=== PATIENT | male | born 1955 | race Caucasian/White ===

== ENCOUNTER → 2020-02-05 | Outpatient (CLI) | payer OTHER ==
--- NOTE | 2020-02-05 15:02 | RAD ---
MR#: [id number] Date of Study: 02/05/2020 Ordering Physician: LEIGHA LAU, Referring Physician: LEIGHA LAU, Tech: Anthony Valenzuela RDMS, RAÚL APPROVED REPORT Patient Location: OUT-PATIENT Exam Type: Ankle to Brachial Index Indications PAD Risk Factors Hypertension Hyperlipidemia Smoking Post Exercise Pressures/Indices Right Left 130mmHgBrachial 120mmHg 116mmHgAnkle (DP) 155mmHg 113mmHgAnkle (PT) 146mmHg 0.89ABI 1.2 Findings 1. Mildly decreased TIMMY on the right side at 0.89, normal left-sided TIMMY. Critical Notification Critical Value: No Signed by : Leigha Lau, Electronically Approved : 02/05/2020 15:02:31
--- NOTE | 2020-02-05 17:02 | RAD ---
MR#: [id number] Date of Study: 02/05/2020 Ordering Physician: LEIGHA LAU, Referring Physician: LEIGHA LAU, Tech: Anthony Valenzuela RDMS, RAÚL APPROVED REPORT Patient Location: OUT-PATIENT Indications hyperlipidemia, body mass index 2.0-2.79, coronary artery disease Risk Factors PAD Hypertension Smoking Duplex Results A/PTransverseLongitudinal Proximal Aorta 3.2cm Mid Aorta 1.5cm Distal Aorta 1.4cm Rt. Common Iliac Artery1.2cm Lt. Common Iliac Artery .8cm Doppler VelocityWaveform Proximal Aorta 51.3 cm/sec Aorta Mid. 34.6 cm/sec Distal Aorta 37.4 cm/sec Rt. Common Iliac Tnqyho95.9 cm/sec Lt. Common Iliac Artery 73.8 cm/sec Findings Technically limited images. Grayscale images of the proximal aorta demonstrate mild aneurysmal dilat ation at 3.2 cm. There is diffuse calcification. No significant velocity acceleration or decelerati on is noted. Critical Notification Critical Value: No <Conclusion> 1. Technically limited study but likely small proximal abdominal aortic aneurysm measuring 3.2 cm. Signed by : Leigha Lau, Electronically Approved : 02/05/2020 17:01:43
--- NOTE | 2020-02-05 17:11 | RAD ---
MR#: [id number] Date of Study: 02/05/2020 Ordering Physician: LEIGHA LAU, Referring Physician: LEIGHA LAU, Tech: Anthony Valenzuela RDMS, RVT APPROVED REPORT Patient Location: OUT-PATIENT Indications PAD Risk Factors Hypertension Hyperlipidemia Smoking VELOCITY AND DOPPLER WAVEFORM ANALYSIS RIGHT cm/secWaveformSeverity LEFT cm/secWaveform Severity pCFA 165.0BiphasicpCFA 179.0Biphasic dCFA dCFA Prof Fem Art. 136.0BiphasicProf Fem Art. 73.0Biphasic Fem Art Prox. 76.6BiphasicFem Art Prox. 118.2Biphasic Fem Art Mid. 66.5BiphasicFem Art Mid. 101.6Biphasic Fem Art Dist. 179.0BiphasicFem Art Dist. 64.5Biphasic Pop Art(Fossa) 36.9BiphasicPop Art(AK) 66.9Biphasic [employer] Prox. 35.3BiphasicPTA Prox. 50.4Biphasic J[employer]OR Dist. 30.7BiphasicPTA Dist. 57.8Biphasic Per Art Prox. 27.2BiphasicPer Art Prox. 19.1Biphasic Per Art Dist.13.0BiphasicPer Art Dist. DO Prox. 29.5BiphasicATA Prox. 41.2Biphasic DPA 28BiphasicDPA not seen Findings Grayscale images of the bilateral lower extremity arterial vessels reveals moderate diffuse atheroscl erosis On the right side normal velocities are noted in the common femoral and proximal superficial femoral artery. There is likely a greater than 50% stenosis involving the distal superficial femoral artery. Below-knee velocities are diminished consistent with more proximal stenosis. There is three-vessel runoff on the right side On the left side there are mostly biphasic waveforms without any focal stenosis from the common femor al artery to the popliteal artery. There is likely moderate diffuse disease involving the peroneal a rtery. The posterior tibial and anterior tibial vessels did not demonstrate any significant disease Critical Notification Critical Value: No <Conclusion> 1. Probable greater than 50% stenosis involving the right SFA Signed by : Leigha Lau, Electronically Approved : 02/05/2020 17:10:47
== END | disposition home or self-care (01) ==
LOC: US 10:27
PROVIDERS: ATTEND Internal Medicine Cardiovascular Disease
DX: I70.213 Atherosclerosis of native arteries of extremities with intermittent claudication, bilateral legs (principal); I71.9 Aortic aneurysm of unspecified site, without rupture
CPT/HCPCS: 76770; 93922; 93925

== ENCOUNTER → 2020-05-27 | Outpatient (CLI) | payer MEDICARE, OTHER ==
--- NOTE | 2020-05-27 16:29 | CARD ---
MR#: [id number] Date of Study: 05/27/2020 Ordering Physician: LEIGHA LAU, Referring Physician: LEIGHA LAU, Tech: Shayna Vale APPROVED REPORT EXAM: Two-dimensional and M-mode echocardiogram with Doppler and color Doppler. Other Information Quality : AverageHR: 64bpm INDICATION Cardiac Disease: CAD Surgery/Intervention CABG: Date: 2010 Site: [place] RISK FACTORS Hypertension Hyperlipidemia 2D DIMENSIONS RVDd4.0 (2.9-3.5cm)Left Atrium(2D)3.9 (1.6-4.0cm) IVSd1.0 (0.7-1.1cm)Aortic Root(2D)3.1 (2.0-3.7cm) LVDd5.0 (3.9-5.9cm)LVOT Diameter1.9 (1.8-2.4cm) PWd1.0 (0.7-1.1cm)LVDs3.1 (2.5-4.0cm) FS (%) 37.1 %SV78.2 ml LVEF(%)66.8 (>50%) Aortic Valve AoV Peak Giovanni.114.6cm/sAoV VTI24.7cm AO Peak GR.5.3mmHgLVOT Peak Giovanni.87.5cm/s LVOT VTI 19.31cmAO Mean GR.3mmHg ALEXIA (VMAX)1.49ri6OOQ (VTI)2.30cm2 Mitral Valve MV E Nmupqvxl72.4cm/sMV DECEL [id number] MV A Ucdrjakg99.2cm/sMV AVA86hr E/A Ratio1.1MVA (PHT)3.24cm2 TDI E/Lateral E'7.0E/Medial E'9.3 Pulmonary Valve PV Peak Tgadgtle65.1cm/sPV Peak Grad.3mmHg Tricuspid Valve TR P. Kcjfkhkc135gs/sRAP [id number] TR Peak Gr.84auNdVYQT39jxYw Pulmonary Vein S1 Dgbtbsdb38.4cm/sD2 Iziqpjef46.7cm/s PVa [id number] LEFT VENTRICLE The left ventricle is normal size. There is normal left ventricular wall thickness. The left ventricu lar systolic function is normal. The Ejection Fraction is 55%. There is normal LV segmental wall rosalee on. Transmitral Doppler flow pattern is Grade II-pseudonormal filling dynamics. RIGHT VENTRICLE The right ventricle is normal size. There is normal right ventricular wall thickness. The right ventr icular systolic function is normal. ATRIA The left atrium size is normal. The right atrium size is normal. The interatrial septum is intact wit h no evidence for an atrial septal defect or patent foramen ovale as noted on 2-D or Doppler imaging. AORTIC VALVE The aortic valve is normal in structure and function. Doppler and Color Flow revealed no significant aortic regurgitation. There is no significant aortic valvular stenosis. Calculated aortic valve area is 2.46 cm2 with maximum pressure gradient of mmHg and mean pressure gradient of mmHg. MITRAL VALVE The mitral valve is normal in structure and function. There is no evidence of mitral valve prolapse. There is no mitral valve stenosis. Doppler and Color-flow revealed trace mitral regurgitation. TRICUSPID VALVE The tricuspid valve is normal in structure and function. Doppler and Color Flow revealed trace tricus pid regurgitation 27 mmHg. There is no tricuspid valve stenosis. PULMONIC VALVE The pulmonic valve is not well visualized. Doppler and Color Flow revealed trace pulmonic valvular re gurgitation. GREAT VESSELS The aortic root is normal in size. The ascending aorta is normal in size. The IVC is normal in size a nd collapses >50% with inspiration. PERICARDIAL EFFUSION There is no evidence of significant pericardial effusion. Critical Notification Critical Value: No <Conclusion> The left ventricular systolic function is normal. The Ejection Fraction is 55%. There is normal LV segmental wall motion. Transmitral Doppler flow pattern is Grade II-pseudonormal filling dynamics. Trace mitral regurgitation. Trace tricuspid regurgitation 27 mmHg. There is no evidence of significant pericardial effusion. Signed by : Jose Barrera, Electronically Approved : 05/27/2020 16:29:02
== END ==
LOC: ECHO 08:42
PROVIDERS: ATTEND Internal Medicine Cardiovascular Disease
DX: I25.10 Atherosclerotic heart disease of native coronary artery without angina pectoris (principal)
CPT/HCPCS: 93306